=== PATIENT | female | born 1970 | race Caucasian/White ===

== ENCOUNTER 2016-05-28 01:02 | Emergency (ER) | payer OTHER, MEDICARE ==
[~2016-05-28 01:02] MED LIST: AZITHROMYC200 MG/51 PO; VIGAMOX 0.60 GTT/1 B IO
[2016-05-28 02:09] LABS: ABSOLUTE BASOPHIL COUNT 0.1 /CUMM (0.0-0.2); ABSOLUTE EOSINOPHIL COUNT 0.1 /CUMM (0.0-0.7); ABSOLUTE GRANULOCYTE CT 7.2 /CUMM (1.4-6.5); ABSOLUTE LYMPH COUNT 1.6 /CUMM (1.2-3.4); ABSOLUTE MONOCYTE COUNT 0.7 /CUMM (0.10-0.60); BASOPHIL % 0.6 % (0.0-2.0); EOSINOPHIL % 0.9 % (0-5); GRANULOCYTE % 74.4 % (42.2-75.2); HEMATOCRIT 35.4 % (37-47); MEAN CORPUSCULAR HGB 27.3 PG (27.0-31.0); MEAN CORPUSCULAR HGB CONC 33.6 G/DL (33.0-37.0); MEAN CORPUSCULAR VOLUME 81.3 FL (81.0-99.0); MEAN PLATELET VOLUME 9.7 FL (7.4-10.4); PLATELET COUNT 231 /CUMM (130-400); RBC DISTRIBUTION WIDTH 15.2 % (11.5-14.5); RED BLOOD CELL CT 4.35 /CUMM (4.20-5.40); WHITE BLOOD CELL COUNT 9.7 /CUMM (4.8-10.8)
--- NOTE | 2016-05-28 02:47 | ED GI/GU/ABDOMINAL COMPLAINT ---
History of Present Illness General Chief Complaint: Abdominal Pain/Flank Pain Stated Complaint: ABD PAIN, NAUSEA, DIARRHEA PER PT Source: patient, family Exam Limitations: language barrier, physical impairment Vital Signs & Intake/Output Vital Signs & Intake/Output Vital Signs Date Time Temp Pulse Resp B/P Pulse O2 O2 Flow FiO2 Ox Delivery Rate 05/28 0253 96.9 84 18 107/72 100 Room Air 05/28 0115 98.2 98 18 125/75 96 Allergies Coded Allergies: MDX - Codeine (CODEINE) (Intermediate, HYPER, JUMPY 01/22/12) Reconcile Medications Azithromycin 200 MG/5 ML SUSP.RECON 5 ML PO DAILY PNEUMONIA DAY 1 500MG PO QD DAY 2-5: 250MG PO QD Diphenoxylate HCl/Atropine (Lomotil 2.5-0.025 MG Tablet) 2.5 MG-0.025 MG TABLET 1-2 TAB PO 4 TIMES/DAY PRN diarrhea twenty....[id number] Moxifloxacin Hydrochloride (Vigamox 0.5% 3ML) 60 GTT/1 BOT GTT 1 GTT IO TID INFN 1 DROP TO LEFT THREE TIMES A DAY FOR 5 DAYS Ondansetron (Zofran Odt) 4 MG TAB.RAPDIS 1 TAB SL TID PRN nausea Triage Note: PT C/O ABDOMINAL PAIN AND NAUSEA FOR PAST 2 HOURS. PT DENIES V/D, FEVER AND CHILLS Triage Nurses Notes Reviewed? yes ? n Is pt currently ? No Onset: Gradual Duration: hour(s): Timing: recent history Quality/Severity: cramping Location: no abdominal pain Radiation: no radiation Prior Abdominal Problems: none Modifying Factors: Improves With: rest. Worsens With: defecating, vomiting. Associated Symptoms: diarrhea, nausea/vomiting HPI: 46 yo woman, history of mental retardation, presents with nausea, vomiting, abdominal cramps since midnight. 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 She has no fever or chills. She had 2 episodes of diarrhea, and a few episodes of vomiting. She notes no abdominal pain. Past History Travel History Traveled to [place] past 21 day No Medical History Any Pertinent Medical History? see below for history Neurological: CEREBRAL PALSY Surgical History Surgical History: N Psychosocial History What is your primary language Kyrgyz Tobacco Use: Never used Family History Hx Contributory? No Review of Systems Review of Systems Constitutional: Reports: no symptoms. EENTM: Reports: no symptoms. Respiratory: Reports: no symptoms. Cardiovascular: Reports: no symptoms. GI: Reports: no symptoms. Genitourinary: Reports: no symptoms. Musculoskeletal: Reports: no symptoms. Skin: Reports: no symptoms. Neurological/Psychological: Reports: no symptoms. Hematologic/Endocrine: Reports: no symptoms. Immunologic/Allergic: Reports: no symptoms. All Other Systems: Reviewed and Negative Physical Exam Physical Exam General Appearance: well developed/nourished, no apparent distress Head: atraumatic, normal appearance Eyes: Bilateral: normal appearance. Ears, Nose, Throat, Mouth: hearing grossly normal Neck: normal inspection, supple, full range of motion, normal alignment Respiratory: normal breath sounds, chest non-tender, no respiratory distress, quiet respiration, lungs clear Cardiovascular: regular rate/rhythm Gastrointestinal: normal bowel sounds, soft, non-tender, no organomegaly Pelvic: normal external exam Back: normal inspection, normal range of motion Extremities: normal range of motion Neurologic/Psych: no motor/sensory deficits, awake, alert, oriented x 3 Skin: intact, normal color, warm/dry Core Measures ACS in differential dx? No Severe Sepsis Present: No Septic Shock Present: No Progress Differential Diagnosis: viral gastroenteritis versus other. I doubt food poisoning. Plan of Care: Orders Procedure Date/time Status TROPONIN LEVEL 05/28 116 Complete LIPASE 05/28 116 Complete HEPATIC FUNCTION PANEL 05/28 116 Complete CBC WITHOUT DIFFERENTIAL 05/28 116 Complete BASIC METABOLIC PANEL 05/28 116 Complete AMYLASE 05/28 116 Complete EKG 05/28 116 Active Current Medications Sig/Amado Start time Last Medication Dose Stop Time Status Admin Diphenoxylate HCl/ 5 MG ONCE ONE 05/28 0300 CAN Atropine 05/28 0301 (Lomotil) Laboratory Tests 05/28/16 0142: Anion Gap 10, Estimated GFR > 60, BUN/Creatinine Ratio 36.0 H, Glucose 101 H, Calcium 8.7, Total Bilirubin 0.3, Direct Bilirubin 0.3, AST 18, ALT 26, Alkaline Phosphatase 46, Troponin I < 0.01, Total Protein 6.8, Albumin 4.2, Amylase 106, Lipase 124, CBC w Diff NO MAN DIFF REQ, RBC 4.35, MCV 81.3, MCH 27.3, RDW 15.2 H, MPV 9.7, Gran % 74.4, Lymphocytes % 16.8 L, Monocytes % 7.3, Eosinophils % 0.9, Basophils % 0.6, Absolute Granulocytes 7.2 H, Absolute Lymphocytes 1.6, Absolute Monocytes 0.7 H, Absolute Eosinophils 0.1, Absolute Basophils 0.1, PUBS MCHC 33.6 Initial ED EKG: normal axis, normal intervals, normal p-waves, normal QRS complex, normal sinus rhythm Departure Departure Disposition: HOME OR SELF CARE Condition: Stable Clinical Impression Primary Impression: Abdominal pain Secondary Impressions: Gastroenteritis, Nausea & vomiting Referrals: BILLY YOUSIF,ALIYAH Osorio (PCP/Family) Departure Forms: Customer Survey General Discharge Information Prescriptions: Current Visit Scripts Ondansetron (Zofran Odt) 1 TAB SL TID PRN nausea #10 TAB Ref 1 Diphenoxylate HCl/Atropine (Lomotil 2.5-0.025 MG Tablet) 1-2 TAB PO 4 TIMES/DAY PRN diarrhea #20 TAB twenty....[id number] Comments Patient feels better after normal saline bolus and Zofran. She states that she has no abdominal pain. She feels well. She would like to go home. I discussed with her and her brother at great length her lab results. She is safe and stable to go home with supportive medications. She is otherwise well. I had the case was follow-up if her symptoms recur. 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
[2016-05-28] MEDS ORDERED: ZOFRAN ODT4 M1 SL (02:48)
[2016-05-28] MEDS ORDERED: LOMOTIL 2.5-0.1 EACH PO (02:48)
[2016-05-28 02:53] VITALS: BP 107/72
== END 2016-05-28 03:06 ==
LOC: ERH 01:02
PROVIDERS: Pediatrics
DX: K52.9 Noninfective gastroenteritis and colitis, unspecified (principal)
CPT/HCPCS: 93005; 93010; 96374; J2405

== ENCOUNTER 2017-07-10 00:38 | Emergency (ER) | payer OTHER, MEDICARE ==
[~2017-07-10] VITALS: Ht 152.4 cm; Wt 41.7 kg
[~2017-07-10 00:38] MED LIST changes: +LOMOTIL 2.5-0.1 EACH PO; +TESSALON PERLE100 M1 PO; +ZOFRAN ODT4 M1 SL
[2017-07-10 00:51] VITALS: BP 111/61
[2017-07-10 01:31] LABS: ABSOLUTE BASOPHIL COUNT 0.1 /CUMM (0.0-0.2); ABSOLUTE EOSINOPHIL COUNT 0.2 /CUMM (0.0-0.7); ABSOLUTE LYMPH COUNT 2.7 /CUMM (1.2-3.4); ABSOLUTE MONOCYTE COUNT 0.9 /CUMM (0.10-0.60); BASOPHIL % 0.6 % (0.0-2.0); EOSINOPHIL % 2.4 % (0-5); GRANULOCYTE % 61.1 % (42.2-75.2); MEAN CORPUSCULAR HGB 28.2 PG (27.0-31.0); MEAN CORPUSCULAR HGB CONC 33.6 G/DL (33.0-37.0); MEAN CORPUSCULAR VOLUME 83.7 FL (81.0-99.0); MEAN PLATELET VOLUME 9.3 FL (7.4-10.4); PLATELET COUNT 213 /CUMM (130-400); RBC DISTRIBUTION WIDTH 14.4 % (11.5-14.5); RED BLOOD CELL CT 4.42 /CUMM (4.20-5.40); WHITE BLOOD CELL COUNT 9.9 /CUMM (4.8-10.8)
--- NOTE | 2017-07-10 02:08 | ED GI/GU/ABDOMINAL COMPLAINT ---
History of Present Illness General Chief Complaint: Abdominal Pain/Flank Pain Stated Complaint: PT C/O ABD PAIN FEELS WEAK +N Source: patient Exam Limitations: no limitations Vital Signs & Intake/Output Vital Signs & Intake/Output Vital Signs Date Time Temp Pulse Resp B/P B/P Pulse O2 O2 Flow FiO2 Mean Ox Delivery Rate 07/10 0051 97.3 113 16 111/61 96 Room Air Room Air Allergies Coded Allergies: codeine (Intermediate, HYPER, JUMPY 05/15/17) Reconcile Medications Azithromycin 200 MG/5 ML SUSP.RECON 5 ML PO DAILY PNEUMONIA DAY 1 500MG PO QD DAY 2-5: 250MG PO QD Benzonatate (Tessalon Perle) 100 MG CAPSULE 1 CAP PO TID PRN COUGH Diphenoxylate HCl/Atropine (Lomotil 2.5-0.025 MG Tablet) 2.5 MG-0.025 MG TABLET 1-2 TAB PO 4 TIMES/DAY PRN diarrhea twenty....[id number] Moxifloxacin Hydrochloride (Vigamox 0.5% 3ML) 60 GTT/1 BOT GTT 1 GTT IO TID INFN 1 DROP TO LEFT THREE TIMES A DAY FOR 5 DAYS Ondansetron (Zofran Odt) 4 MG TAB.RAPDIS 1 TAB SL TID PRN nausea Ondansetron (Zofran Odt) 4 MG TAB.RAPDIS 1 TAB SL TID PRN NAUSEA Triage Note: 47YO FEMALE TO TRIAGE W/CO NAUSEA AND LIGHTHEADEDNESS TONITE. STATES NO "VOMITING BUT DID HAVE EPISODE OF DIARRHEA 2330. BROTHER STATES SHE HAD SPAGHETTI W/ANCHOVIES FOR DINNER. Triage Nurses Notes Reviewed? yes ? n Is pt currently ? No Duration: hour(s): Timing: recent history Quality/Severity: cramping Location: generalized abdomen Radiation: no radiation Activities at Onset: none Associated Symptoms: abdominal pain HPI: 47 yo woman h/o mental retardation presents with diffuse abdominal discomfort, mild nausea, mild diarrhea, mild dizziness. Her brother shares that she ate at an [place] restaurant for dinner last night. She ate "oily food... and some sangria... She awoke with feeling nauseous and had some diarrhea." No vomiting, chills, chest pain. She is otherwise well. Past History Travel History Traveled to [place] past 21 day No Medical History Any Pertinent Medical History? see below for history Neurological: CEREBRAL PALSY EENT: NONE Cardiovascular: NONE Respiratory: NONE Gastrointestinal: GERD Hepatic: NONE Renal: NONE Musculoskeletal: NONE Psychiatric: NONE Endocrine: NONE Surgical History Surgical History: non-contributory, N Psychosocial History What is your primary language Nepali Tobacco Use: Never used Family History Hx Contributory? No Review of Systems Review of Systems Constitutional: Reports: no symptoms. EENTM: Reports: no symptoms. Respiratory: Reports: no symptoms. Cardiovascular: Reports: no symptoms. GI: Reports: no symptoms. Genitourinary: Reports: no symptoms. Musculoskeletal: Reports: no symptoms. Skin: Reports: no symptoms. Neurological/Psychological: Reports: no symptoms. Hematologic/Endocrine: Reports: no symptoms. Immunologic/Allergic: Reports: no symptoms. All Other Systems: Reviewed and Negative Physical Exam Physical Exam General Appearance: well developed/nourished, no apparent distress Head: atraumatic, normal appearance Eyes: Bilateral: normal appearance. Ears, Nose, Throat, Mouth: hearing grossly normal, moist mucous membrane Neck: normal inspection, supple, full range of motion, normal alignment Respiratory: normal breath sounds, chest non-tender, no respiratory distress, quiet respiration, lungs clear Cardiovascular: regular rate/rhythm Gastrointestinal: normal bowel sounds, soft, non-tender Back: normal inspection Extremities: normal range of motion Neurologic/Psych: no motor/sensory deficits, awake, alert, oriented x 3 Skin: intact, normal color, warm/dry Core Measures ACS in differential dx? No Sepsis Present: No Sepsis Focused Exam Completed? No Progress Differential Diagnosis: food poisoning, viral gastro vs other. Plan of Care: Orders Procedure Date/time Status URINALYSIS 07/10 0104 Complete TROPONIN LEVEL 07/10 0056 Active LIPASE 07/10 0056 Active HEPATIC FUNCTION PANEL 07/10 0056 Active CBC WITHOUT DIFFERENTIAL 07/10 0056 Complete BASIC METABOLIC PANEL 07/10 0056 Active AMYLASE 07/10 0056 Active EKG 07/10 0056 Active Current Medications Sig/Amado Start time Last Medication Dose Stop Time Status Admin Diphenoxylate HCl/ 2.5 MG ONCE ONE 07/10 0230 UNVr 07/10 Atropine 07/10 0231 0230 (Lomotil) Ondansetron HCl 4 MG ONCE ONE 07/10 0230 UNVr 07/10 (Zofran) 07/10 0231 0230 Laboratory Tests 07/10/17 0112: Anion Gap 14, Estimated GFR > 60, BUN/Creatinine Ratio 30.0 H, Glucose 98, Calcium 9.7, Total Bilirubin 0.6, Direct Bilirubin 0.3, AST 18, ALT 16, Alkaline Phosphatase 47, Troponin I Pending, Total Protein 7.3, Albumin 4.3, Amylase 125 H, Lipase 172, CBC w Diff NO MAN DIFF REQ, RBC 4.42, MCV 83.7, MCH 28.2, MCHC 33.6, RDW 14.4, MPV 9.3, Gran % 61.1, Lymphocytes % 26.9, Monocytes % 9.0, Eosinophils % 2.4, Basophils % 0.6, Absolute Granulocytes 6.0, Absolute Lymphocytes 2.7, Absolute Monocytes 0.9 H, Absolute Eosinophils 0.2, Absolute Basophils 0.1 07/10/17 0105: Urine Color YEL, Urine Clarity HAZY H, Urine pH 5.5, Ur Specific [place] >= 1.030, Urine Protein TRACE H, Urine Ketones NEG, Urine Nitrite NEG, Urine Bilirubin NEG, Urine Urobilinogen 0.2, Ur Leukocyte Esterase NEG, Ur Microscopic SEDIMENT EXAMINED, Urine RBC 1-3, Urine WBC 1-3 H, Ur Epithelial Cells MANY H, Urine Bacteria MOD H, Urine Mucus MANY H, Urine Hemoglobin SMALL H, Urine Glucose NEG Initial ED EKG: SINUS, NON SPECIFIC CHANGES. Departure Departure Disposition: HOME OR SELF CARE Condition: Stable Clinical Impression Primary Impression: Abdominal pain Referrals: Ge YOUSIF,Terrell Osorio (PCP/Family) Departure Forms: Customer Survey General Discharge Information Prescriptions: Current Visit Scripts Ondansetron (Zofran Odt) 1 TAB SL TID PRN NAUSEA #10 TAB Comments 07/10/17, 2:45am... pt is feeling well in ED... no abdominal tenderness.... discussed with brother and patient... will give supportive medications... close follow up advised. pt to return if not feeling better.
[2017-07-10] MEDS ORDERED: ZOFRAN ODT4 M1 SL (02:27)
== END 2017-07-10 02:56 ==
LOC: ERH 00:38
PROVIDERS: Pediatrics
DX: R10.84 Generalized abdominal pain (principal)
CPT/HCPCS: 81001; 93005; 93010; J3101

== ENCOUNTER 2017-08-21 06:37 | Emergency (ER) | payer OTHER, MEDICARE ==
[2017-08-21] MEDS ORDERED: BLEPH-105 ML OPH (07:35)
[2017-08-21] MEDS ORDERED: ACULAR5 ML OPH (07:35)
--- NOTE | 2017-08-21 07:35 | ED EYE COMPLAINT ---
History of Present Illness General Chief Complaint: Eye Problems Stated Complaint: POKED HERSELF IN THE EYE Source: patient, family, old records Exam Limitations: no limitations Vital Signs & Intake/Output Vital Signs & Intake/Output Vital Signs Date Time Temp Pulse Resp B/P B/P Pulse O2 O2 Flow FiO2 Mean Ox Delivery Rate 08/21 0748 90 18 111/72 99 Room Air 08/21 0648 Room Air 08/21 0645 97.8 96 16 123/85 97 Room Air Room Air Allergies Coded Allergies: codeine (Intermediate, HYPER, JUMPY 05/15/17) Reconcile Medications Azithromycin 200 MG/5 ML SUSP.RECON 5 ML PO DAILY PNEUMONIA DAY 1 500MG PO QD DAY 2-5: 250MG PO QD Benzonatate (Tessalon Perle) 100 MG CAPSULE 1 CAP PO TID PRN COUGH Diphenoxylate HCl/Atropine (Lomotil 2.5-0.025 MG Tablet) 2.5 MG-0.025 MG TABLET 1-2 TAB PO 4 TIMES/DAY PRN diarrhea twenty....[id number] Ketorolac Tromethamine (Acular) 0.5 % DROPS 1 GTT OPH 4 TIMES/DAY PRN eye pain Moxifloxacin Hydrochloride (Vigamox 0.5% 3ML) 60 GTT/1 BOT GTT 1 GTT IO TID INFN 1 DROP TO LEFT THREE TIMES A DAY FOR 5 DAYS Ondansetron (Zofran Odt) 4 MG TAB.RAPDIS 1 TAB SL TID PRN nausea Ondansetron (Zofran Odt) 4 MG TAB.RAPDIS 1 TAB SL TID PRN NAUSEA Sulfacetamide Sodium (Bleph-10) 10 % DROPS 2 GTT OPH 4 TIMES/DAY corneal abrasion Triage Note: 47YO FEMALE TO TRIAGE W/CO L EYE PAIN SP "POKING HERSELF LAST NIGHT W/TOY" NO REDNESS PRESNT. CO PAIN WHEN "MY EYE CLOSES " Triage Nurses Notes Reviewed? yes Onset: Evening Duration: hour(s):, constant, continues in ED Timing: recent history Injury Environment: home Severity: mild Modifying Factors: Worsens With: other (closing eye). Left Eye Associated Symptoms: itching LMP (ages 10-50): unknown : No Patient currently breastfeeds: No HPI: The evening prior to admission patient poked herself in the left thigh with a pet toy complaining of discomfort when closing her eye. She denies fever chills nausea vomiting diarrhea abdominal pain chest pain shortness breath headache dysuria rash bleeding change in vision. Past History Travel History Traveled to [place] past 21 day No Medical History Any Pertinent Medical History? see below for history Neurological: CEREBRAL PALSY EENT: NONE Cardiovascular: NONE Respiratory: NONE Gastrointestinal: GERD Hepatic: NONE Renal: NONE Musculoskeletal: NONE Psychiatric: NONE Endocrine: NONE Surgical History Surgical History: non-contributory, N Psychosocial History What is your primary language French Tobacco Use: Never used Family History Hx Contributory? No Review of Systems Review of Systems Constitutional: Reports: no symptoms. Eyes: Reports: see HPI, pain. Ear: Reports: no symptoms. Nose: Reports: no symptoms. Mouth: Reports: no symptoms. Throat: Reports: no symptoms. Respiratory: Reports: no symptoms. Cardiovascular: Reports: no symptoms. GI: Reports: no symptoms. Genitourinary: Reports: no symptoms. Musculoskeletal: Reports: no symptoms. Skin: Reports: no symptoms. Neurological/Psychological: Reports: no symptoms. Hematologic/Endocrine: Reports: no symptoms. Immunologic/Allergic: Reports: no symptoms. All Other Systems: Reviewed and Negative Physical Exam General Appearance: well developed/nourished, mild distress General Inspection: normal inspection Eyelid: normal inspection Conjunctiva/Sclera: normal inspection Cornea: examined w/fluorescein, abrasion, fluorescein dye uptake EOM: intact Pupil: normal accommodation, normal pupil, PERRL Anterior Chamber: normal inspection General Inspection: normal inspection Eyelid: normal inspection Conjunctiva/Sclera: normal inspection Cornea: normal inspection EOM: intact Pupil: normal accommodation, normal pupil, PERRL Anterior Chamber: normal inspection Physical Exam Head: atraumatic, normal appearance Ears: Bilateral: canal normal, Tympanic normal. 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 Enjoy the concert tonight. Departure Forms: Customer Survey General Discharge Information Prescriptions: Current Visit Scripts Sulfacetamide Sodium (Bleph-10) 2 GTT OPH 4 TIMES/DAY #5 ML Ketorolac Tromethamine (Acular) 1 GTT OPH 4 TIMES/DAY PRN eye pain #5 ML
[2017-08-21 07:48] VITALS: BP 111/72
[2017-08-27] MEDS ORDERED: LEVSIN-SL0.125 MG SL (05:45)
[2017-08-27] MEDS ORDERED: LOMOTIL 2.5-0.1 EACH PO (05:45)
[2017-09-07] MEDS ORDERED: IBUPROFEN600 M1 PO (23:50)
[2017-09-26] MEDS ORDERED: VIGAMOX3 ML OPH (02:39)
[2017-10-02] MEDS ORDERED: KEFLEX500 M1 PO (20:20)
[2017-10-17] MEDS ORDERED: POLYTRIM EYE DR10 ML OPH (19:04)
== END 2017-08-21 07:49 ==
LOC: ERH 06:37
DX: S05.02XA Injury of conjunctiva and corneal abrasion without foreign body, left eye, initial encounter (principal); W22.8XXA Striking against or struck by other objects, initial encounter; Y92.9 Unspecified place or not applicable; Y93.9 Activity, unspecified

== ENCOUNTER 2017-10-26 02:36 | Emergency (ER) | payer OTHER, MEDICARE ==
[~2017-10-26] VITALS: Ht 149.9 cm; Wt 43.1 kg
[~2017-10-26 02:36] MED LIST changes: +ACULAR5 ML OPH; +BLEPH-105 ML OPH; +IBUPROFEN600 M1 PO; +KEFLEX500 M1 PO; +LEVSIN-SL0.125 MG SL; +POLYTRIM EYE DR10 ML OPH; +VIGAMOX3 ML OPH
[2017-10-26 02:44] VITALS: BP 121/77
--- NOTE | 2017-10-26 03:07 | ED GENERAL ADULT ---
History of Present Illness General Chief Complaint: General Adult Stated Complaint: MULTI COMP,"EVERYTHING IS WRONG" Source: patient, family, old records Exam Limitations: no limitations Vital Signs & Intake/Output Vital Signs & Intake/Output Vital Signs Date Time Temp Pulse Resp B/P B/P Pulse O2 O2 Flow FiO2 Mean Ox Delivery Rate 10/26 0244 98.5 108 18 121/77 96 Room Air Allergies Coded Allergies: codeine (Intermediate, HYPER, JUMPY 08/27/17) Reconcile Medications Azithromycin 200 MG/5 ML SUSP.RECON 5 ML PO DAILY PNEUMONIA DAY 1 500MG PO QD DAY 2-5: 250MG PO QD Benzonatate (Tessalon Perle) 100 MG CAPSULE 1 CAP PO TID PRN COUGH Cephalexin (Keflex) 500 MG CAPSULE 1 CAP PO TID cellultiis Diphenoxylate HCl/Atropine (Lomotil 2.5-0.025 MG Tablet) 2.5 MG-0.025 MG TABLET 1-2 TAB PO 4 TIMES/DAY PRN diarrhea twenty....[id number] Diphenoxylate HCl/Atropine (Lomotil 2.5-0.025 MG Tablet) 2.5 MG-0.025 MG TABLET 1 TAB PO 4 TIMES/DAY PRN diarrhea Hyoscyamine Sulfate (Levsin-Sl) 0.125 MG TAB.SUBL 1-2 TAB SL Q4P PRN abdominal cramps Ibuprofen 600 MG TABLET 1 TAB PO TID pain with food Ketorolac Tromethamine (Acular) 0.5 % DROPS 1 GTT OPH 4 TIMES/DAY PRN eye pain Moxifloxacin Hydrochloride (Vigamox 0.5% 3ML) 60 GTT/1 BOT GTT 1 GTT IO TID INFN 1 DROP TO LEFT THREE TIMES A DAY FOR 5 DAYS Moxifloxacin Hydrochloride (Vigamox) 0.5 % DROPS 1 GTT OPH TID EYE IRRITATION APPLY 1 DROP INTO THE LEFT EYE 3 TIMES A DAY FOR 5 DAYS Ondansetron (Zofran Odt) 4 MG TAB.RAPDIS 1 TAB SL TID PRN nausea Ondansetron (Zofran Odt) 4 MG TAB.RAPDIS 1 TAB SL TID PRN NAUSEA Polytrim (Polytrim Eye Drops) 10,000 UNIT-1 MG/ML DROPS 1 GTT OPH Q6 conuunctivitis Sulfacetamide Sodium (Bleph-10) 10 % DROPS 2 GTT OPH 4 TIMES/DAY corneal abrasion Triage Note: TRIAGE: PATIENT TO ER FROM HOME W/ BROTHER W/ MULTIPLE COMPLAINTS; 1.L KNEE PAIN "FROM CRAWLING AROUND" UNKNOWN ONSET 2. GENERALZED ABD PAIN "DON'T KNOW WHEN IT STARTED" 3. R EYE PAIN, DENIES BLURRED VISION, "DON'T KNOW WHEN IT STARTED." PATIENT HX CEREBAL PALSY AND MENTAL STATUS IS AT BASELINE. Triage Nurses Notes Reviewed? yes HPI: Patient presents with 3 separate complaints. Her first complaint is bilateral knee pain. Patient states that whenever she calls, even though she uses her knee pads, she gets pains in her knees. Patient has been seen in the ED for this in the past. The pain is aching in nature. She rates the pain as mild. There is no radiation. Patient's second complaint is pain in her left eye. Patient states she got into bed and rupture eye on her pillow. Patient felt a burning sensation which is subsequently resolved. She no longer has pain in her eye. Patient also states that she is due to start a new job on Wednesday and is very nervous about it. She states whenever she gets nervous she gets abdominal discomfort. Patient has had abdominal discomfort for the past 3 days. There are no aggravating or mitigating factors. There is no radiation. She rates it as mild on the scale. Patient took Levsin earlier this morning without any relief. There is no nausea or vomiting. There is no dysuria. Past History Travel History Traveled to [place] past 21 day No Medical History Any Pertinent Medical History? 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 No Review of Systems Review of Systems Constitutional: Reports: no symptoms. EENTM: Reports: see HPI, eye pain. Respiratory: Reports: no symptoms. Cardiovascular: Reports: no symptoms. GI: Reports: see HPI, abdominal pain. Genitourinary: Reports: no symptoms. Musculoskeletal: Reports: see HPI, joint pain. Skin: Reports: no symptoms. Neurological/Psychological: Reports: no symptoms. Hematologic/Endocrine: Reports: no symptoms. Immunologic/Allergic: Reports: no symptoms. All Other Systems: Reviewed and Negative Physical Exam Physical Exam General Appearance: well developed/nourished, alert, awake, anxious Head: atraumatic Eyes: Bilateral: PERRL, EOMI. Neck: normal inspection, supple Respiratory: normal breath sounds, chest non-tender, no respiratory distress, lungs clear Cardiovascular: regular rate/rhythm, normal peripheral pulses Gastrointestinal: normal bowel sounds, soft, non-tender, no organomegaly Neurologic/Psych: awake, alert, oriented x 3, normal mood/affect Core Measures ACS in differential dx? No CVA/TIA Diagnosis: No Sepsis Present: No Sepsis Focused Exam Completed? No Progress Differential Diagnoses I considered the following diagnoses in my evaluation of the patient: [Anxiety, UTI] Plan of Care: Orders Procedure Date/time Status URINALYSIS 10/26 0254 Complete Laboratory Tests 10/26/17 0300: Urinalysis LIGHT H, Urine Color YEL, Urine Clarity CLDY H, Urine pH 6.0, Ur Specific [place] >= 1.030, Urine Protein 30 H, Urine Ketones 40 H, Urine Nitrite NEG, Urine Bilirubin NEG, Urine Urobilinogen 0.2, Ur Leukocyte Esterase NEG, Ur Microscopic SEDIMENT EXAMINED, Urine RBC 5-10 H, Urine WBC 1-3 H, Ur Epithelial Cells MANY H, Urine Bacteria FEW H, Urine Mucus MANY H, Urine Hemoglobin TRACE-INTACT, Urine Glucose NEG Initial ED EKG: none Departure Departure Disposition: HOME OR SELF CARE Condition: Stable Clinical Impression Primary Impression: Anxiety Referrals: Ge YOUSIF,Terrell Osorio (PCP/Family) Additional Instructions: return for any concerns Departure Forms: Customer Survey General Discharge Information Critical Care Note Critical Care Note Critical Care Time: non-applicable
== END 2017-10-26 03:40 ==
LOC: ERH 02:36
DX: F41.9 Anxiety disorder, unspecified (principal)
CPT/HCPCS: 81001

== ENCOUNTER 2017-10-30 21:20 | Emergency (ER) | payer OTHER, MEDICARE ==
[~2017-10-30] VITALS: Ht 152.4 cm; Wt 43.1 kg
[2017-10-30 21:25] VITALS: BP 123/83
--- NOTE | 2017-10-30 22:44 | ED GENERAL ADULT ---
History of Present Illness General Chief Complaint: Abdominal Pain/Flank Pain Stated Complaint: ABD PAIN Source: patient, family Exam Limitations: clinical condition Vital Signs & Intake/Output Vital Signs & Intake/Output Vital Signs Date Time Temp Pulse Resp B/P B/P Pulse O2 O2 Flow FiO2 Mean Ox Delivery Rate 10/305 97.3 101 16 123/83 97 Room Air ED Intake and Output 10/31 0000 10/30 1200 Intake Total Output Total Balance Patient 94 lb 15.99 oz Weight Weight Reported by Patient Measurement Method Allergies Coded Allergies: codeine (Intermediate, HYPER, JUMPY 08/27/17) Reconcile Medications Azithromycin 200 MG/5 ML SUSP.RECON 5 ML PO DAILY PNEUMONIA DAY 1 500MG PO QD DAY 2-5: 250MG PO QD Benzonatate (Tessalon Perle) 100 MG CAPSULE 1 CAP PO TID PRN COUGH Cephalexin (Keflex) 500 MG CAPSULE 1 CAP PO TID cellultiis Diphenoxylate HCl/Atropine (Lomotil 2.5-0.025 MG Tablet) 2.5 MG-0.025 MG TABLET 1-2 TAB PO 4 TIMES/DAY PRN diarrhea twenty....[id number] Diphenoxylate HCl/Atropine (Lomotil 2.5-0.025 MG Tablet) 2.5 MG-0.025 MG TABLET 1 TAB PO 4 TIMES/DAY PRN diarrhea Hyoscyamine Sulfate (Levsin-Sl) 0.125 MG TAB.SUBL 1-2 TAB SL Q4P PRN abdominal cramps Ibuprofen 600 MG TABLET 1 TAB PO TID pain with food Ketorolac Tromethamine (Acular) 0.5 % DROPS 1 GTT OPH 4 TIMES/DAY PRN eye pain Moxifloxacin Hydrochloride (Vigamox 0.5% 3ML) 60 GTT/1 BOT GTT 1 GTT IO TID INFN 1 DROP TO LEFT THREE TIMES A DAY FOR 5 DAYS Moxifloxacin Hydrochloride (Vigamox) 0.5 % DROPS 1 GTT OPH TID EYE IRRITATION APPLY 1 DROP INTO THE LEFT EYE 3 TIMES A DAY FOR 5 DAYS Ondansetron (Zofran Odt) 4 MG TAB.RAPDIS 1 TAB SL TID PRN nausea Ondansetron (Zofran Odt) 4 MG TAB.RAPDIS 1 TAB SL TID PRN NAUSEA Polytrim (Polytrim Eye Drops) 10,000 UNIT-1 MG/ML DROPS 1 GTT OPH Q6 conuunctivitis Sulfacetamide Sodium (Bleph-10) 10 % DROPS 2 GTT OPH 4 TIMES/DAY corneal abrasion Triage Note: REPORTS 15 MINUTES OF ABDOMINAL CRAMPING AND DIARRHEA. Triage Nurses Notes Reviewed? yes Onset: Last week Duration: day(s):, week(s): HPI: 47 year old woman with past medical history of cerebral palsy seen for evaluation of abdominal cramping and diarrhea. Patient was recently seen on 10/26 with similar complaints with knee pain and right eye pain which she attributed to her nerves due to her "starting a new job" this coming wednesday. She received 0.5 mg of PO Ativan with resolution of her symptoms and was sent home. She returns today with recurrent of her abdominal pain with diarrhea and attributes these symptoms the the new job. She otherwise feels wells and denies any fever, chills, chest pain, nausea, or shortness of breath. Past History Travel History Traveled to [place] past 21 day No Medical History Any Pertinent Medical History? 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 No Review of Systems Review of Systems Constitutional: Reports: no symptoms. EENTM: Reports: no symptoms. Respiratory: Reports: no symptoms. Cardiovascular: Reports: no symptoms. GI: Reports: abdominal pain, diarrhea. Denies: nausea. Genitourinary: Denies: dysuria, frequency. Musculoskeletal: Reports: no symptoms. Skin: Reports: no symptoms. Neurological/Psychological: Reports: no symptoms. Hematologic/Endocrine: Reports: no symptoms. Immunologic/Allergic: Reports: no symptoms. Physical Exam Physical Exam General Appearance: no apparent distress, alert, awake, comfortable Head: atraumatic, normal appearance Eyes: Bilateral: normal appearance, PERRL, EOMI. Ears, Nose, Throat: normal pharynx, normal ENT inspection Neck: normal inspection, supple, full range of motion Respiratory: normal breath sounds, no respiratory distress Cardiovascular: regular rate/rhythm Gastrointestinal: soft, non-tender, no organomegaly Extremities: normal inspection Neurologic/Psych: awake, alert, oriented x 3 Skin: intact, normal color, warm/dry Core Measures ACS in differential dx? No CVA/TIA Diagnosis: No Sepsis Present: No Sepsis Focused Exam Completed? No Progress Differential Diagnoses I considered the following diagnoses in my evaluation of the patient: anxiety, gastroenteritis, urinary tract infection Plan of Care: Follow-up with her doctor this week return to the emergency department immediately if abdominal pain returned, fever or vomiting. Initial ED EKG: none Departure Departure Disposition: HOME OR SELF CARE Condition: Stable Clinical Impression Primary Impression: Panic disorder Referrals: Ge YOUSIF,Terrell Osorio (PCP/Family) Departure Forms: Customer Survey General Discharge Information Comments The patient was reevaluated prior to discharge. Both the patient and her sister confirmed that this is similar to her prior panic attacks. She is starting a new job for the first time on Wednesday and she's been very nervous about that. Currently in the ED she has no abdominal pain. No abdominal tenderness. No history of vomiting, fever, dysuria, or other complaints. She was given 0.5 of Ativan. She will follow-up with her doctor this week. Critical Care Note Critical Care Note Critical Care Time: non-applicable
== END 2017-10-30 23:52 ==
LOC: ERH 21:20
DX: F41.0 Panic disorder [episodic paroxysmal anxiety] (principal)